=== PATIENT | male | born 1985 | race Caucasian/White ===

== ENCOUNTER → 2022-08-01 14:03 | Outpatient (CLI) | payer OTHER, SELFPAY ==
--- NOTE | ~2022-08-01 | US_ITS ---
Thyroid ultrasound. Clinical History: Nontoxic goiter Findings: Real-time sonography of the thyroid gland was performed. The right lobe measures 5.2 x 1.9 x 1.6 cm. The left lobe measures 3.5 x 1.3 x 1.5 cm. The isthmus is 6 mm in AP diameter. No thyroid nodule identified. Impression: Homogeneous thyroid gland, without evidence of nodule.. Reviewed, dictated and finalized at location . Impression: Homogeneous thyroid gland, without evidence of nodule..
== END ==
PROVIDERS: PCP Physician Assistant; Visit Provider Physician Assistant
DX: E04.9 Nontoxic goiter, unspecified (principal)
CPT/HCPCS: 76536